=== PATIENT | female | born 2000 | race Caucasian/White ===

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

== ENCOUNTER 2019-01-01 20:53 | Emergency (ER) | payer OTHER ==
--- NOTE | 2019-01-01 21:40 | EDPHY ---
H & P Stated Complaint: "I WANT TO BE CHECKED FOR DM" NUMBNESS TO HANDS X 2 WKS - Personal History LMP (Females 10-55): Now Current Tetanus Diphtheria and Acellular Pertussis (TDAP): Yes - Medical/Surgical History Hx Asthma: Yes Hx Chronic Respiratory Disease: No Hx Diabetes: No Hx Cardiac Disease: No Hx Renal Disease: No Hx Cirrhosis: No Hx Alcoholism: No Hx HIV/AIDS: No Hx Splenectomy or Spleen Trauma: No Other PMH: depesssion, anxiety, asthma, hypothyroid - Social History Smoking Status: Never smoked Time Seen by Provider: 01/01/19 21:35 HPI/ROS: CHIEF COMPLAINT: "I want to be checked for diabetes" HISTORY OF PRESENT ILLNESS: 18-year-old female history of bipolar disorder, hypothyroid, in the ER requesting to be "tested for diabetes". She is concerned because of polyuria, polydipsia, intermittent paresthesias to the hands, sweating. She last ate some chocolate [employer] shortly before coming to the ER. Currently on her menstrual period. She denies: Chest pain, dyspnea, abdominal pain, nausea, vomiting PRIMARY CARE PROVIDER: REVIEW OF SYSTEMS: 10 systems reviewed and negative with the exception of the elements mentioned in the history of present illness PAST MEDICAL & SURGICAL HISTORY: Hypothyroidism. Bipolar disorder. SOCIAL HISTORY: Nonsmoker. [ PHYSICAL EXAM (Prior to examination, patient consented to physical exam, hands were washed and my usual and customary physical exam procedures followed) 1) GENERAL: Well-developed, well-nourished, alert and oriented. Appears to be in no acute distress. 2) HEAD: Normocephalic, atraumatic 3) HEENT: Pupils equal, round, reactive to light bilaterally. Sclera anicteric. Nasopharynx, oropharynx, clear, no lesions. Moist Mucous membranes. 4) NECK: Full range of motion, no meningeal signs. 5) LUNGS: Clear auscultation bilaterally, no wheezes, no rhonchi, no retractions. 6) HEART: Regular rate and rhythm, no murmur, no heave, no gallop. 7) ABDOMEN: No guarding, no rebound, no focal tenderness, negative McBurney's, negative Truong's, negative Rovsing's, negative peritoneal sign, 8) MUSCULOSKELETAL: Moving all extremities, no focal areas of tenderness, no obvious trauma. No peripheral edema or discoloration. 9) BACK: No CVA tenderness, no midline vertebral tenderness, no fluctuance, no step-off, no obvious trauma, no visual or palpable abnormality. 10) SKIN: No rash, no petechiae. 11) Psychiatric: Patient is oriented X 3, there is no agitation. DIFFERENTIAL DIAGNOSIS: In no particular order including but not limited to DKA, new onset diabetes, cystitis (Howie Piedra Sheryl) Constitutional: Initial Vital Signs Temperature (C) 36.6 C 01/01/19 20:57 Heart Rate 83 01/01/19 20:57 Respiratory Rate 16 01/01/19 20:57 Blood Pressure 129/103 H 01/01/19 20:57 O2 Sat (%) 100 01/01/19 20:57 O2 Delivery Mode Room Air Allergies/Adverse Reactions: Penicillins Allergy (Verified 12/04/18 21:01) Home Medications: Medication Instructions Recorded Glycopyrrolate 12/30/17 Levothyroxine 12/30/17 Prozac 10 MG (*) 12/30/17 clonazePAM [Clonazepam] 1 mg PO HS #5 tab.rapdis 12/30/17 OXcarbazepine 09/28/18 Medical Decision Making ED Course/Re-evaluation: Patient was re-evaluated with serial exams was recently at 11:00 p.m.. She is specifically concerned that she may have diabetes. Her random serum glucose is 93 in the ER. Doubt DKA. Doubt diabetes. We did discuss her elevated TSH of 7.27. She has a history of hypothyroidism. At this time I will not recommend immediate adjustment however I did recommend she follow up with endocrinology to discuss possibly changing her levothyroxine dosage. Doubt thyroid storm. I do not think that further diagnostic studies indicated from the ER. She appears well overall. She feels comfortable being discharged. All questions and concerns addressed by myself. Care of patient under supervision of secondary supervising physician Dr Segundo with whom I discussed case. (Howie Piedra Sheryl) Other Provider: The patient was evaluated and managed by the Physician [facility] [employer]. My co- signature indicates that I have reviewed this chart and I agree with the findings and plan of care as documented. I am the secondary supervising physician. (Meena Seugndo) - Data Points Laboratory Results: Laboratory Results 01/01/19 21:30 01/01/19 21:30 Point of Care Test Results: Chemistry 01/01/19 21:46 POC Sodium 141 mEq/L mEq/L (135-145) POC Potassium 4.0 mEq/L mEq/L (3.3-5.0) POC Chloride 103 mEq/L mEq/L (97-110) POC Total CO2 26 mEq/L mEq/L (22-31) POC BUN 11 mg/dL mg/dL (7-23) POC Creatinine 0.6 mg/dL mg/dL (0.6-1.0) POC Glucose 94 mg/dL mg/dL (70-100) ISTAT H&H 01/01/19 21:46 POC Hgb 15.3 gm/dL gm/dL (12.6-16.3) POC Hct 45 % % (38-47) Departure - Departure Disposition: Home, Routine, Self-Care Clinical Impression: TSH elevation Condition: Good Instructions: Hypothyroidism (ED) Additional Instructions: Return to the ER if you develop new or worsening symptoms, if you develop chest pain, shortness of breath or any other symptoms that concern you Referrals: Antoinette Jara MD [[facility] [place] [facility] [place]] - 2-3 days, call for appt. ( Dr. Antoinette Jara is environmental science instructor)
[2019-01-01 21:48] LABS: PLATELET COUNT 405 10^3/uL (150-400)
[2019-01-01 23:18] VITALS: BP 130/100
== END 2019-01-01 23:16 | disposition home or self-care (01) ==
DX: R94.6 Abnormal results of thyroid function studies (principal); E03.9 Hypothyroidism, unspecified; F31.9 Bipolar disorder, unspecified; Z79.899 Other long term (current) drug therapy
CPT/HCPCS: 82435-PO; 82565-PO; 82947-PO; 84132-PO; 84295-PO; 84520-PO; 85014-ER